=== PATIENT | male | born 1960 | race Caucasian/White ===

== ENCOUNTER 2016-07-25 12:22 | Emergency (ER) | payer MEDICAID ==
[2016-07-25] MEDS ORDERED: ONDANSETRON 4 MG/2 ML VIAL IVP ONE ×2 (12:38→14:33)
--- NOTE | 2016-07-25 13:15 | EDPHY ---
H & P Time Seen by Provider: 07/25/16 12:51 HPI/ROS: Chief complaint. Abdominal pain HPI. 55-year-old male chronic abdominal pain and possibly cyclic vomiting syndrome presents with abdominal pain and vomiting since about 3 o'clock this morning. Left-sided abdominal pain which is typical for him since last night. It is described as crampy without radiation. Had some diarrhea last night. No fever, chest discomfort, trouble breathing. This happens every 3-4 months and this is a similar and typical episode. Denies urinary symptoms. He also tells me that Dilaudid and Ativan intravenously usually helps his symptoms ROS Constitutional. no fever/chills, no weakness Eyes. no problems with vision ENT. no sore throat, no nasal drainage Cardiovascular. no chest pain Respiratory. no shortness of breath, no cough Abdominal. Abdominal pain and vomiting with diarrhea last night . no problems urinating MS. no calf pain/swelling, no neck/back pain, no joint pain Skin. no rash Lymph. no swollen glands Neuro. no headache, no dizziness, no difficulty walking or with speech Past Medical/Surgical History: Past medical history is significant for gastroparesis, kidney stone, cholecystectomy, paretic nodularis, chronic pain Social History: , denies tobacco or alcohol. Smokes marijuana daily Smoking Status: Former smoker Physical Exam: General Appearance: Alert well-developed male mild distress vital signs are stable Eyes: Pupils equal and round no pallor or injection. ENT, Mouth: Mucous membranes are moist. Respiratory: There are no retractions, lungs are clear to auscultation. Cardiovascular: Regular rate and rhythm. Gastrointestinal: Abdomen is soft with mild tenderness to the left abdomen. No masses. Bowel sounds normal Neurological: Awake and alert, sensory and motor exams grossly normal. Skin: Warm and dry, no rashes. Musculoskeletal: Neck is supple nontender. Extremities symmetrical, full range of motion. Psychiatric: Patient is oriented X 3, there is no agitation. Constitutional: Initial Vital Signs Temperature (C) 36.6 C 07/25/16 12:25 Heart Rate 61 07/25/16 12:25 Respiratory Rate 20 07/25/16 12:25 Blood Pressure 176/85 H 07/25/16 12:25 O2 Sat (%) 97 07/25/16 12:25 O2 Delivery Mode Nasal Cannula O2 (L/minute) 2 Allergies/Adverse Reactions: sulfamethoxazole [From Bactrim] Allergy (Severe, Verified 11/21/15 12:45) serum sickness trimethoprim [From Bactrim] Allergy (Severe, Verified 11/21/15 12:45) serum sickness meperidine HCl [From Demerol] Allergy (Intermediate, Verified 11/21/15 12:45) visual changes naproxen sodium [From Anaprox] Allergy (Intermediate, Verified 11/21/15 12:45) Hives Penicillins Allergy (Intermediate, Verified 11/21/15 12:45) shellfish derived Allergy (Verified 11/21/15 12:45) Itching Sulfa (Sulfonamide Antibiotics) Allergy (Verified 11/21/15 12:45) Home Medications: Medication Instructions Recorded Albuterol [Proventil Inhaler HFA 1 puffs IH DAILY PRN 02/17/15 (*)] Multivitamins [Multivitamin (*)] 1 each PO DAILY 02/17/15 Ranitidine HCl [Zantac] 300 mg PO BID 02/17/15 Morphine Sulfate 100mg/5ml 0.5 - 1 ml PO Q4 PRN 04/08/16 Promethazine HCl [Phenergan 25mg 25 mg PO Q4-6PRN PRN #7 tab 07/25/16 (*)] Medical Decision Making - Diagnostics Imaging: CT scan with IV contrast of abdomen and pelvis reviewed by me and discussed with Dr. Arredondo shows a nonacute abdomen Procedures: IV normal saline. Zofran and morphine. Reglan Benadryl intravenously ED Course/Re-evaluation: Re-evaluation 2:30 p.m.--come complains of continued pain and nausea however no vomiting. Remained EKG did with Zofran and morphine. CT abdomen is ordered Re-evaluation at 4:15 p.m.. Patient is stable. He still somewhat nauseated but feels well enough to go home. The patient and I discussed treatment plan including criteria for return and importance of follow-up and further evaluation. He expresses understanding and agreement Patient is given Phenergan orally. Differential Diagnosis: This may be cyclic vomiting syndrome, otherwise gastroenteritis. I considered diverticulitis, appendicitis - Data Points Laboratory Results: Laboratory Results 07/25/16 12:35 07/25/16 12:35 07/25/16 12:35 WBC 10.78 H 10^3/uL (3.80-9.50) RBC 4.82 10^6/uL (4.40-6.38) Hgb 14.4 g/dL (13.7-17.5) Hct 42.0 % (40.0-51.0) MCV 87.1 fL (81.5-99.8) MCH 29.9 pg (27.9-34.1) MCHC 34.3 g/dL (32.4-36.7) RDW 13.2 % (11.5-15.2) Plt Count 448 H 10^3/uL (150-400) MPV 8.9 fL (8.7-11.7) Neut % (Auto) 78.8 H % (39.3-74.2) Lymph % (Auto) 14.8 L % (15.0-45.0) [place] % (Auto) 5.4 % (4.5-13.0) Eos % (Auto) 0.2 L % (0.6-7.6) Baso % (Auto) 0.4 % (0.3-1.7) Nucleat RBC Rel Count 0.0 % (0.0-0.2) Absolute Neuts (auto) 8.50 H 10^3/uL (1.70-6.50) Absolute Lymphs (auto) 1.60 10^3/uL (1.00-3.00) Absolute Monos (auto) 0.58 10^3/uL (0.30-0.80) Absolute Eos (auto) 0.02 L 10^3/uL (0.03-0.40) Absolute Basos (auto) 0.04 10^3/uL (0.02-0.10) Absolute Nucleated RBC 0.00 10^3/uL (0-0.01) Immature Gran % 0.4 % (0.0-1.1) Immature Gran # 0.04 10^3/uL (0.00-0.10) Sodium 144 mEq/L (134-144) Potassium 4.0 mEq/L (3.5-5.2) Chloride 109 mEq/L (97-110) Carbon Dioxide 21 L mEq/l (22-31) Anion Gap 14 mEq/L (8-16) BUN 10 mg/dL (7-23) Creatinine 0.8 mg/dL (0.7-1.3) Estimated GFR > 60 Glucose 117 H mg/dL (70-100) Calcium 10.0 mg/dL (8.5-10.4) Lipase 75.0 IU/L (23-300) Medications Given: Discontinued Medications Diphenhydramine HCl (Benadryl Injection) 25 mg IVP EDNOW ONE Stop: 07/25/16 13:29 Last Admin: 07/25/16 13:55 Dose: 25 mg Sodium Chloride (Ns) 1,000 mls @ 0 mls/hr IV ONCE ONE PRN Reason: Wide Open Stop: 07/25/16 13:29 Last Admin: 07/25/16 14:02 Dose: 1,000 mls Sodium Chloride (Ns) 1,000 mls @ 0 mls/hr IV ONCE ONE PRN Reason: Wide Open Stop: 07/25/16 13:29 Last Admin: 07/25/16 14:02 Dose: 1,000 mls Metoclopramide HCl (Reglan Injection) 10 mg IVP EDNOW ONE Stop: 07/25/16 13:29 Last Admin: 07/25/16 14:02 Dose: 10 mg Morphine Sulfate (Morphine) 6 mg IVP EDNOW ONE Stop: 07/25/16 13:29 Last Admin: 07/25/16 14:02 Dose: 6 mg Morphine Sulfate (Morphine) 6 mg IVP EDNOW ONE Stop: 07/25/16 14:34 Last Admin: 07/25/16 14:56 Dose: 6 mg Ondansetron HCl (Zofran) 4 mg IVP EDNOW ONE Stop: 07/25/16 12:39 Last Admin: 07/25/16 12:46 Dose: 4 mg Ondansetron HCl (Zofran) 4 mg IVP EDNOW ONE Stop: 07/25/16 14:34 Last Admin: 07/25/16 14:57 Dose: 4 mg Departure - Departure Disposition: Home, Routine, Self-Care Clinical Impression: Vomiting Qualifiers: Vomiting type: unspecified Vomiting Intractability: non-intractable Nausea presence: with nausea Qualifier Code: (R11.2) Nausea with vomiting, unspecified Condition: Good Instructions: Acute Nausea and Vomiting (ED) Additional Instructions: Phenergan as needed for nausea and vomiting. Frequent, small sips fluids while nauseated. Gradual diet advancement. Return over the weekend for worsening abdominal pain or vomiting. Recheck on Wednesday with Tiffanie Brannon without fail Referrals: Tiffanie Brannon PA [Primary Care Provider] - 1-2 days without fail Prescriptions: Promethazine HCl [Phenergan 25mg (*)] 25 mg PO Q4-6PRN PRN #7 tab PRN Reason: Nausea/Vomiting, Use 1st
[2016-07-25] MEDS ORDERED: NS 1,000 ML IV ONE ×2 (13:28)
[2016-07-25] MEDS ORDERED: METOCLOPRAMIDE 10 MG/2 ML VIAL IVP ONE (13:28)
[2016-07-25 13:38] LABS: % IMMATURE GRANULYOCYTES 0.4 % (0.0-1.1); ABSOLUTE IMMATURE GRANULOCYTES 0.04 10^3/uL (0.00-0.10); ADD DIFF? NO; ADD MORPH? NO; ADD SCAN? NO; ATYPICAL LYMPHOCYTE FLAG 0 (0-99); FRAGMENT RBC FLAG 0 (0-99); HEMOGLOBIN 14.4 g/dL (13.7-17.5); LEFT SHIFT FLG 0 (0-99); LIPEMIA HEMOLYSIS FLAG 90 (0-99); MEAN CELL HEMOGLOBIN 29.9 pg (27.9-34.1); MEAN CELL HEMOGLOBIN CONCENTR. 34.3 g/dL (32.4-36.7); MEAN CELL VOLUME 87.1 fL (81.5-99.8); MEAN PLATELET VOLUME 8.9 fL (8.7-11.7); PLATELET CLUMPS FLAG 0 (0-99); PLATELET COUNT 448 10^3/uL (150-400); RED BLOOD CELL COUNT 4.82 10^6/uL (4.40-6.38); RED CELL DISTRIBUTION WIDTH 13.2 % (11.5-15.2)
[2016-07-25 13:45] LABS: ANION GAP 14 mEq/L (8-16); CARBON DIOXIDE 21 mEq/l (22-31); CHLORIDE 109 mEq/L (97-110); CREATININE 0.8 mg/dL (0.7-1.3); GLOMERULAR FILTRATION RATE > 60; GLUCOSE 117 mg/dL (70-100); SODIUM 144 mEq/L (134-144)
[2016-07-25] MEDS ORDERED: IOPAMIDOL (ISOVUE-300) 50 ML VIAL IV ONE (15:00)
--- NOTE | 2016-07-25 16:11 | CT ---
CT Scan of the Abdomen and Pelvis (With Contrast) Clinical Indications: Abdominal pain with nausea and vomiting in pain in a 55-year-old male. Technique: No oral contrast was administered. 100 mL of Isovue-300 were given intravenously by christina e power injection. Multidetector helical CT imaging was performed from the diaphragm to the symphysi s pubis. Axial images are obtained at 5 mm intervals and reformatted at 1.5 mm thickness. The examina tion is reviewed on the workstation at multiple window/level settings. Sagittal and coronal reformati ons are performed. Comparison to the prior study April 08, 2016. Dose reduction techniques were u tilized for this examination. Findings: Abdomen: The lung bases are clear, and there is no significant pleural fluid. The liver is normal. The biliary ducts are unremarkable. The gallbladder is surgically absent. There is a small hernia of the anterior abdominal wall containing only herniated abdominal fat. The pancre as and spleen are normal. There is a nonobstructing right renal calculus. There is no hydronephrosis. The kidneys perfuse symmetrically. The adrenal glands are normal. No adenopathy and no masses are f ound. Minimal calcified aortic plaque formation is seen with no aneurysm of the abdominal aorta. Pelvis: The urinary bladder is unremarkable. Mild prostatic enlargement is unchanged. No free fluid in the pelvis. No masses are identified. Bowel loops are normal. Impression: 1. CT the abdomen and pelvis negative for acute abnormality. As been no significant change from the p rior study. 2. See above report for specific findings. A preliminary report was called to Dr. Ej Guillory and 1605 hours in the Emergency Department.
[2016-07-25] MEDS ORDERED: PROMETHAZINE HCL 25 MG TAB PO ONE (16:24)
[2016-07-25 16:47] VITALS: BP 149/82; PULSE 59; RESP 18; TEMP 97.3; O2SAT 98
== END 2016-07-25 16:47 | disposition home or self-care (01) ==
DX: R11.2 Nausea with vomiting, unspecified (principal); Z87.891 Personal history of nicotine dependence; Z90.49 Acquired absence of other specified parts of digestive tract
CPT/HCPCS: 96374; J2405; J2765; Q9967

== ENCOUNTER → 2017-11-11 | Outpatient (CLI) | payer MEDICAID | LOC: FIMAGING 08:03 | PROVIDERS: ATTEND Internal Medicine Gastroenterology | DX: R11.2 Nausea with vomiting, unspecified (principal); R10.9 Unspecified abdominal pain | CPT/HCPCS: 78264; A9541 ==

== ENCOUNTER → 2018-11-17 | Outpatient (CLI) | payer MEDICAID ==
[~2018-11-17] MED LIST: IOPAMIDOL (ISOVUE-300) 100 ML BTL ONE
== END ==
LOC: FIMAGING 13:12
PROVIDERS: ATTEND Physician Assistant
DX: K43.9 Ventral hernia without obstruction or gangrene (principal); N20.0 Calculus of kidney; N40.0 Benign prostatic hyperplasia without lower urinary tract symptoms; R11.0 Nausea
CPT/HCPCS: Q9967